=== PATIENT | male | born 1985 | race Caucasian/White ===

== ENCOUNTER 2019-03-15 17:27 | Emergency (ER) | payer SELFPAY ==
[~2019-03-15] VITALS: Ht 180.3 cm; Wt 81.5 kg
[~2019-03-15 17:27] MED LIST: DOXYCYCLINE 10100 MG PO; NO HOME MEDICATIONS; NORCO 325 MG-51 TAB PO
[2019-03-15 17:33] VITALS: BP 139/85; TEMP 98.1
[2019-03-15] MEDS ORDERED: ZOLOFT 50MG50 MG PO ×2 (17:37→18:01)
[2019-03-15 18:22] VITALS: PULSE 84
== END 2019-03-15 18:22 | disposition home or self-care (01) ==
LOC: COL.ER 17:27
DX: F41.9 Anxiety disorder, unspecified (principal); F32.9 Major depressive disorder, single episode, unspecified; F17.210 Nicotine dependence, cigarettes, uncomplicated; Z76.0 Encounter for issue of repeat prescription

== ENCOUNTER 2019-04-15 09:43 | Emergency (ER) | payer SELFPAY ==
[~2019-04-15] VITALS: Ht 180.3 cm; Wt 86.8 kg
[~2019-04-15 09:43] MED LIST changes: +ZOLOFT 50MG50 MG PO
[2019-04-15 10:07] VITALS: BP 132/68; TEMP 97.7
[2019-04-15] MEDS ORDERED: ZOLOFT 50MG50 MG PO ×2 (10:55→11:26)
[2019-04-15 11:25] VITALS: PULSE 84
== END 2019-04-15 11:25 | disposition home or self-care (01) ==
LOC: COL.ER 09:43
DX: F32.9 Major depressive disorder, single episode, unspecified (principal); F41.9 Anxiety disorder, unspecified; Z76.0 Encounter for issue of repeat prescription

== ENCOUNTER → 2022-06-27 | Outpatient (CLI) | payer BC | LOC: COL.RAD 09:13 | DX: B18.2 Chronic viral hepatitis C (principal) ==